=== PATIENT | female | born 1985 | race Caucasian/White ===

== ENCOUNTER 2016-12-04 17:33 | Outpatient (CLI) | payer OTHER ==
[~2016-12-04] VITALS: Ht 160 cm; Wt 107.3 kg
[~2016-12-04 17:33] MED LIST: CIPR500T4 PO; NAPR-260 PO; NITR-58 PO; [UNRECOGNIZED DRUG - CODE] PO
[2016-12-04] MEDS ORDERED: FER325 PO (17:48)
[2016-12-04] MEDS ORDERED: PRENAT PO (17:48)
[2016-12-04 17:49] VITALS: BP 144/78; PULSE 101; RESP 18; Ht 160 cm; Wt 107.3 kg
[2016-12-04 18:29] LABS: BASOPHILS % 0.2 % (0.0-2.0); EOSINOPHILS # 0.2 10^3/ul (0.0-0.5); EOSINOPHILS % 1.8 % (0.0-7.0); HEMATOCRIT 35.4 % (37.0-47.0); HEMOGLOBIN 11.9 g/dl (12.0-16.0); LYMPHOCYTES # 2.8 10^3/ul (0.8-2.9); MEAN CORPUSCULAR HGB CONC 33.7 g/dl (32.0-37.0); MEAN CORPUSCULAR VOLUME 86.2 fl (82.0-101.0); MEAN PLATELET VOLUME 10.6 fl (7.4-10.4); MONOCYTE # 0.9 10^3/ul (0.3-0.9); MONOCYTES % 8.9 % (0.0-11.0); NEUTROPHIL # 6.5 10^3/ul (1.6-7.5); NEUTROPHILS % 62.1 % (39.0-77.0); PLATELET COUNT 235 10^3/UL (140-440); RED BLOOD COUNT 4.11 10^6/ul (4.20-5.40); UNCORRECTED WBC 10.4 10^3/ul (4.8-10.8); WHITE BLOOD COUNT 10.4 10^3/ul (4.8-10.8)
[2016-12-04 18:41] LABS: CONDITION 1; LH ANALYZER COMMENTS 1
[2016-12-04 18:46] LABS: ALBUMIN 3.5 g/dl (3.3-4.9)
[2016-12-04 18:47] LABS: POTASSIUM 3.7 mmol/L (3.5-5.1)
[2016-12-04 18:49] LABS: BILIRUBIN,INDIRECT 0.2 mg/dl (0-1.1); BILIRUBIN,TOTAL 0.2 mg/dl (0.2-1.3); CREATININE 0.56 mg/dl (0.44-1.00)
--- NOTE | 2016-12-04 18:49 | RADRPT ---
PROCEDURE: Limited obstetric ultrasound CLINICAL INDICATION: Pain , labor TECHNIQUE: Multiple transverse and longitudinal grayscale images of the pelvis were obtained mao sabdominally and transvaginally.. COMPARISON: 08/17/2016 FINDINGS: The cervix is closed with a length of 4.4 cm. There is a single viable intrauterine gestation. Cardiac activity is present with 144 beats per min [place]. There is a breech presentation. The placenta is anterior. There is no evidence for an abruption or placenta previa. RPTAT: AA IMPRESSION: Cervix length measures 4.4 cm. .Maxx Ugalde MD, MD Date Time Electronically viewed and signed by .Maxx Ugalde MD, on 12/04/2016 18:48 .S/
[2016-12-04 18:50] LABS: ALBUMIN/GLOBULIN RATIO 1.06; TOTAL PROTEIN 6.8 g/dl (6.1-8.1)
[2016-12-04 18:50] LABS: ADD UMIC NO; URINE BILIRUBIN (Dip) NEGATIVE (NEGATIVE); URINE BLOOD (Dip) NEGATIVE (NEGATIVE); URINE COLOR LT. YELLOW (YELLOW); URINE GLUCOSE (Dip) NEGATIVE (NEGATIVE); URINE KETONES (Dip) NEGATIVE (NEGATIVE); URINE LEUKOCYTE ESTERASE (Dip) NEGATIVE (NEGATIVE); URINE NITRITE (Dip) NEGATIVE (NEGATIVE); URINE TOTAL PROTEIN (Dip) NEGATIVE (NEGATIVE); URINE UROBILINOGEN (Dip) 0.2 E.U./dL (0.1-1.0)
[2016-12-04 18:51] LABS: CALCIUM 9.4 mg/dl (8.4-10.2)
--- NOTE | 2016-12-04 19:01 | TRIAGE ---
OB Triage Datetime Report Generated by CPN: 12/04/2016 19:00 Datetime: 12/04/2016 18:30 Stage of : OB Triage Maternal Assessment Level of Consciousness: Fully Conscious Labor Evaluation Frequency: NONE Monitor Mode: External Resting Tone [place]: Relaxed Heart Rate Monitor Mode: Doppler (Annotations: FHT'S DOPPLED IN THE 150'S) Pain Assessment Pain Scale: 3 Pain Presence: Constant Pain Type: Cramping Pain Location: Abdomen Pain Goal: 3 Vaginal Exam Membrane Status: Intact Vaginal Bleeding: None Datetime: 12/04/2016 17:44 Assessment Type: Triage Maternal Assessment Level of Consciousness: Fully Conscious DTR's/Clonus: DTRs 2+; No Clonus Headache: Denies Blurred Vision: No Respiratory Effort: Unlabored; Regular Rhythm; Equal Expansion Breath Sounds, Left: Clear and Equal Breath Sounds, Right: Clear and Equal Nausea/Vomiting: Denies RUQ Epigastric Pain: Denies Lower Extremities Edema: None Degree: None Upper Extremities Edema: None Degree: None Facial Edema: None Fall Risk Assessment History of Falling: (0) No Secondary Diagnosis: (0) No Ambulatory Aid: (0) Bedrest/Nurse Assist IV Therapy: (0) No Gait: (0) Normal/Bedrest/Immobile Mental Status: (0) Oriented to Own Ability Fall Score: 0 Fall Risk Score Definition: No Risk: No action required Datetime: 12/04/2016 17:43 Time of Arrival: 12/04/2016 17:30 EGA: 21.4 Arrived By: Ambulatory Arrived From: Home Chief Complaint: PT HERE C/O SPOTTING X 1 OCCURENCE Movement: Present Contractions: Denies/Absent Rupture of Membranes: Denies Vaginal Bleeding: None Vaginal Discharge: Denies Recent Sexual Intercouse: Denies Abdominal Trauma: Not Applicable Patient Complaints: Cramping; Back Pain Time Provider Notified: 12/04/2016 17:55 Provider Notified: ADEN Initial Plan: EFM, UA C/S, CVL, CMP, CBC Datetime: 12/04/2016 17:36 Heart Rate Monitor Mode: Doppler Comments: FHT'S OBTAINED IN THE 150'S
--- NOTE | 2016-12-05 13:36 | PN ---
Date/Time of Note Date/Time of Note DATE: 12/05/16 TIME: 13:25 OB Subjective Subjective Subjective vaginal spotting on urination on wiping no more vaginal spotting on arrival at triage also occasional cramping pain at 21w4d with EDC 04/12/17 OB Objective Objective Objective no evidence of vaginal bleeding BP 144/78 KNOWN TO HAVE CHRONIC HTN repeat BP 138/65 EFM no uterine activities U/A NEG C&S sent CMP CBC NORMAL CERVICAL length 4.4cm CVA NO TENDERNESS OB Assessment/Plan Other Assessment: IUP 21W4D VAGINAL SPOTTING R/O PTL R/O UTI Other plan: D/S home with routine labor instructions increase fluid intake f/u at office for care Copies To: CC: MARJAN SAMANIEGO MD, MEE SOOK MD Dec 05, 2016 13:36
== END 2016-12-04 19:09 | disposition home or self-care (01) ==
LOC: OBT 17:33 → L-D 17:34 → OBT 19:09
PROVIDERS: ATTEND Obstetrics & Gynecology
DX: O26.852 Spotting complicating pregnancy, second trimester (principal); R10.9 Unspecified abdominal pain; Z3A.21 21 weeks gestation of pregnancy
CPT/HCPCS: 76817; 80053; 81003; 85025; 87086

== ENCOUNTER 2017-01-11 16:31 | Outpatient (CLI) | payer OTHER ==
[~2017-01-11] VITALS: Ht 160 cm; Wt 108.0 kg
[~2017-01-11 16:31] MED LIST changes: -CIPR500T4 PO; +FER325 PO; -NAPR-260 PO; -NITR-58 PO; +PRENAT PO; -[UNRECOGNIZED DRUG - CODE] PO
[2017-01-11 16:41] VITALS: BP 141/73; PULSE 105; Ht 160 cm; Wt 108.0 kg
[2017-01-11 17:59] LABS: ADD SCAN DIFF NO
[2017-01-11 18:06] LABS: BASOPHILS % 0.2 % (0.0-2.0); EOSINOPHILS # 0.2 10^3/ul (0.0-0.5); EOSINOPHILS % 2.1 % (0.0-7.0); HEMATOCRIT 33.4 % (37.0-47.0); LYMPHOCYTES # 2.6 10^3/ul (0.8-2.9); LYMPHOCYTES % 24.3 % (15.0-51.0); MEAN CORPUSCULAR HEMOGLOBIN 29.1 pg (29.0-33.0); MEAN CORPUSCULAR HGB CONC 32.9 g/dl (32.0-37.0); MEAN CORPUSCULAR VOLUME 88.4 fl (82.0-101.0); MONOCYTE # 0.8 10^3/ul (0.3-0.9); MONOCYTES % 6.9 % (0.0-11.0); NEUTROPHIL # 7.2 10^3/ul (1.6-7.5); NEUTROPHILS % 65.9 % (39.0-77.0); PLATELET COUNT 227 10^3/UL (140-415); RED BLOOD COUNT 3.78 10^6/ul (4.20-5.40); WHITE BLOOD COUNT 10.9 10^3/ul (4.8-10.8)
[2017-01-11 18:10] LABS: ALBUMIN 3.1 g/dl (3.3-4.9)
[2017-01-11 18:13] LABS: ALBUMIN/GLOBULIN RATIO 1.1; BILIRUBIN,INDIRECT 0.1 mg/dl (0-1.1); BILIRUBIN,TOTAL 0.1 mg/dl (0.2-1.3); CREATININE 0.41 mg/dl (0.44-1.00); TOTAL PROTEIN 5.9 g/dl (6.1-8.1)
[2017-01-11 18:14] LABS: CALCIUM 8.6 mg/dl (8.4-10.2)
[2017-01-11 18:17] LABS: POTASSIUM 2.9 mmol/L (3.5-5.1)
[2017-01-11] MEDS ORDERED: POTASSIUM CHLORIDE (SR) 20 MEQ TAB PO STA (18:28)
[2017-01-11 18:46] LABS: ADD UMIC NO; URINE BILIRUBIN (Dip) NEGATIVE (NEGATIVE); URINE BLOOD (Dip) NEGATIVE (NEGATIVE); URINE COLOR LT. YELLOW (YELLOW); URINE GLUCOSE (Dip) NEGATIVE (NEGATIVE); URINE KETONES (Dip) NEGATIVE (NEGATIVE); URINE LEUKOCYTE ESTERASE (Dip) NEGATIVE (NEGATIVE); URINE NITRITE (Dip) NEGATIVE (NEGATIVE); URINE TOTAL PROTEIN (Dip) NEGATIVE (NEGATIVE); URINE UROBILINOGEN (Dip) 0.2 E.U./dL (0.1-1.0)
--- NOTE | 2017-01-11 19:06 | HP ---
Date/Time of Note Date/Time of Note DATE: 01/11/17 TIME: 18:59 OB - History Hx of Present Free Text/Dictation OB Triage Pt is a 31yo @27+0 with gHTN and prior PIH presents for an episode of flushing and nausea and vomiting after eating a cheeseburger. She then took her BP and said it was 153/111. Pt denies headache, visual changes or RUQ pain. At home pt reports her BPs have been 130s-140s/70s Pt denies taking antihypertensives Estimated Due Date: Apr 12, 2017 : 4 Para: 3 Care: Good Care Obstetrical Complications: Gestational Hypertension OB Admission Exam Vital Signs Vital Signs Vital Signs Date Time Temp Pulse Resp B/P Pulse Ox O2 Delivery O2 Flow Rate FiO2 01/11/17 16:41 97.6 105 141/73 BPs 140s/60-70s Physical Exam Heart Rate: 130's Accelerations: Accelerations Present Decelerations: No Decelerations Varibility: Moderate Contractions on Admission: None Last 72 hours Lab Results CBC & BMP 01/11/17 17:30 Liver Function Test 01/11/17 17:30 Alanine Aminotransferase (ALT/SGPT) 27 Albumin 3.1 L Alkaline Phosphatase 75 Aspartate Amino Transf (AST/SGOT) 17 Direct Bilirubin 0.00 Total Protein 5.9 L OB Assessment/Plan Other Assessment: gHTN without e/o PreE Reactive NST Other plan: Pt with normal PreE labs Hypokalemia managed with PO potassium per Dr. Alfaro Pt appropriate for d/c home with close follow-up Pt will f/up on 01/14/[address] Alfaro Strict PreE precautions, PTL and PPROM precautions reviewed Questions answered to patient's satisfaction KAILYN BURGER MD Jan 11, 2017 19:06
--- NOTE | 2017-01-11 19:10 | TRIAGE ---
OB Triage Datetime Report Generated by CPN: 01/11/2017 19:10 Datetime: 01/11/2017 17:50 Stage of : OB Triage Datetime: 01/11/2017 17:29 FHR Baseline Changes: No Baseline Change Comments: EFM DC .PT WAITING FOR LAB RESULTS TO BE DCD Datetime: 01/11/2017 17:27 Labor Evaluation Frequency: NONE Monitor Mode: External Pattern: Normal: <= 5 Contractions in 10 Minutes Resting Tone [place]: Relaxed Heart Rate FHR Baseline Rate: 135 Monitor Mode: External US FHR Baseline Changes: No Baseline Change Variability: Moderate 6-25 bpm Accelerations: 15X15 Decelerations: None Category: Category I Datetime: 01/11/2017 17:10 Labor Evaluation Frequency: NONE Monitor Mode: External Pattern: Normal: <= 5 Contractions in 10 Minutes Resting Tone [place]: Relaxed Heart Rate FHR Baseline Rate: 135 Monitor Mode: External US FHR Baseline Changes: No Baseline Change Variability: Moderate 6-25 bpm Accelerations: 15X15 Decelerations: None Category: Category I Datetime: 01/11/2017 17:00 Labor Evaluation Frequency: NONE Monitor Mode: External Pattern: Normal: <= 5 Contractions in 10 Minutes Resting Tone [place]: Relaxed Heart Rate FHR Baseline Rate: 135 Monitor Mode: External US FHR Baseline Changes: No Baseline Change Variability: Moderate 6-25 bpm Accelerations: 15X15 Decelerations: Variable Category: Category I Datetime: 01/11/2017 16:39 Assessment Type: Triage Maternal Assessment Level of Consciousness: Fully Conscious DTR's/Clonus: DTRs 2+; No Clonus Headache: Denies Blurred Vision: No Respiratory Effort: Unlabored; Regular Rhythm; Equal Expansion Breath Sounds, Left: Clear and Equal Breath Sounds, Right: Clear and Equal Nausea/Vomiting: Denies RUQ Epigastric Pain: Denies Lower Extremities Edema: None Degree: None Upper Extremities Edema: None Degree: None Facial Edema: None Fall Risk Assessment History of Falling: (0) No Secondary Diagnosis: (0) No Ambulatory Aid: (0) Bedrest/Nurse Assist IV Therapy: (0) No Gait: (0) Normal/Bedrest/Immobile Mental Status: (0) Oriented to Own Ability Fall Score: 0 Fall Risk Score Definition: No Risk: No action required Datetime: 01/11/2017 16:36 Time of Arrival: 01/11/2017 16:36 EGA: 27.0 Arrived By: Ambulatory Arrived From: Home Chief Complaint: OB VISIT Movement: Present Contractions: Denies/Absent Rupture of Membranes: Denies Vaginal Bleeding: None Vaginal Discharge: Denies Recent Sexual Intercouse: Denies Abdominal Trauma: Not Applicable Patient Complaints: None Additional Patient Complaints: H/O GEST HTN Initial Plan: EFM Datetime: 12/04/2016 17:44 Fall Score: 0 Fall Risk Score Definition: No Risk: No action required Datetime: 12/04/2016 17:43 EGA: 21.4
== END 2017-01-11 19:05 | disposition home or self-care (01) ==
LOC: L-D 16:31 → OBT 16:31
PROVIDERS: ATTEND Obstetrics & Gynecology
DX: O13.2 Gestational [pregnancy-induced] hypertension without significant proteinuria, second trimester (principal); Z3A.27 27 weeks gestation of pregnancy
CPT/HCPCS: 36415; 80053; 81003; 85025; 85730; Z7500; Z7610; G0463

== ENCOUNTER 2017-03-18 15:11 | Inpatient (IN) | payer OTHER ==
[~2017-03-18] VITALS: Ht 157.5 cm; Wt 108.3 kg
[2017-03-18 15:52] VITALS: Ht 157.5 cm; Wt 108.3 kg
[2017-03-18 15:53] VITALS: BP 141/78; PULSE 104; RESP 18
[2017-03-18 16:07] LABS: ADD SCAN DIFF NO
[2017-03-18 16:10] LABS: ADD UMIC NO; URINE BILIRUBIN (Dip) NEGATIVE (NEGATIVE); URINE BLOOD (Dip) NEGATIVE (NEGATIVE); URINE COLOR LT. YELLOW (YELLOW); URINE GLUCOSE (Dip) NEGATIVE (NEGATIVE); URINE KETONES (Dip) TRACE (NEGATIVE); URINE LEUKOCYTE ESTERASE (Dip) NEGATIVE (NEGATIVE); URINE NITRITE (Dip) NEGATIVE (NEGATIVE); URINE TOTAL PROTEIN (Dip) NEGATIVE (NEGATIVE); URINE UROBILINOGEN (Dip) 0.2 E.U./dL (0.1-1.0)
[2017-03-18 16:10] LABS: BASOPHILS % 0.1 % (0.0-2.0); EOSINOPHILS # 0.1 10^3/ul (0.0-0.5); EOSINOPHILS % 1.3 % (0.0-7.0); HEMATOCRIT 33.6 % (37.0-47.0); HEMOGLOBIN 10.9 g/dl (12.0-16.0); LYMPHOCYTES # 2.2 10^3/ul (0.8-2.9); MEAN CORPUSCULAR HEMOGLOBIN 28.4 pg (29.0-33.0); MEAN CORPUSCULAR HGB CONC 32.4 g/dl (32.0-37.0); MEAN CORPUSCULAR VOLUME 87.5 fl (82.0-101.0); MEAN PLATELET VOLUME 11.9 fl (7.4-10.4); MONOCYTE # 0.6 10^3/ul (0.3-0.9); MONOCYTES % 7.8 % (0.0-11.0); NEUTROPHILS % 62.5 % (39.0-77.0); PLATELET COUNT 204 10^3/UL (140-415); RED BLOOD COUNT 3.84 10^6/ul (4.20-5.40); RED CELL DISTRIBUTION WIDTH 15.2 % (11.5-14.5)
[2017-03-18 16:26] LABS: INR 0.99; PROTIME 13.1 Sec (12.2-14.2)
--- NOTE | 2017-03-18 16:26 | RADRPT ---
PROCEDURE: US OB biophysical profile. CLINICAL INDICATION: decreased movements, hypertension TECHNIQUE: Multiple sonographic images of the pelvis were obtained. The images were reviewed on a PACS workstation. COMPARISON: No prior studies are available for comparison. FINDINGS: There is a single viable intrauterine gestation. Cardiac activity is present with 150 beats per min [place]. There is a vertex presentation. The placenta is anterior. There is no evidence of placental abruption. There is a decreased amount of amniotic fluid with an RADHA = 4.8 cm. Biophysical profile: movement 2/2 tone 2/2. breathing 2/2 RADHA 0/2 Total 04/18 RPTAT: AA . IMPRESSION: Decreased biophysical profile. Oligohydramnios. . .Maxx Ugalde MD, Date Time Electronically viewed and signed by .Maxx Ugalde MD, MD on 03/18/2017 16:26 .S/
[2017-03-18 16:29] LABS: POTASSIUM 3.4 mmol/L (3.5-5.1)
[2017-03-18 16:31] LABS: ALBUMIN/GLOBULIN RATIO 0.93; BILIRUBIN,INDIRECT 0.2 mg/dl (0-1.1); BILIRUBIN,TOTAL 0.2 mg/dl (0.2-1.3); CREATININE 0.56 mg/dl (0.44-1.00); TOTAL PROTEIN 6.2 g/dl (6.1-8.1)
[2017-03-18 16:32] LABS: CALCIUM 8.7 mg/dl (8.4-10.2)
[2017-03-18 16:56] LABS: FIBRIN SPLIT PRODUCT <10 ug/ml (<10)
[2017-03-18] MEDS: LACTATED RINGER'S 1,000 ML IV SCH (19:23)
--- NOTE | 2017-03-19 01:33 | HP ---
Date/Time of Note Date/Time of Note DATE: 03/19/17 TIME: 01:25 OB - History Hx of Present Free Text/Dictation 31 y.o [id number] 2Xcesarean sections sent for high blood pressure at 36w3d at triage 141/78 130/73 PIH panel nl BPP 8/8 with RADHA 4.8 kept overnight with iv hydration and repeat RADHA in am Chief Complaint: oligohyramniosi Estimated Due Date: Apr 12, 2017 : 4 Para: 2 Spontaneous : 0 Care: Good Care Ultrasounds: Normal mid trimester US Obstetrical Complications: None Medical Complications: None Past Family/Social History * Past Medical, Surgical, Family and Obstetric Histories reviewed from chart. Blood Type: Unknown Rubella: unknown RPR/VDRL: Unknown GBS Status: Unknown HBsAG: Unknown OB Admission Exam Vital Signs Vital Signs Vital Signs Date Time Temp Pulse Resp B/P Pulse Ox O2 Delivery O2 Flow Rate FiO2 03/18/17 15:53 98.6 104 18 141/78 Room Air Physical Exam HEENT: WNL Heart: Rhythm Normal Lungs: Clear, Equal Abdomen: WNL Extremities: Normal Reflexes: Normal Cervical Dilatation: other Station: Other Amniotic Fluid: Other Heart Rate: 140's Accelerations: Accelerations Present Decelerations: No Decelerations Varibility: Moderate Contractions on Admission: >10 Minutes Apart Intensity: Mild Last 72 hours Lab Results CBC & BMP 03/18/17 15:45 Liver Function Test 03/18/17 15:45 Alanine Aminotransferase (ALT/SGPT) 29 Albumin 3.0 L Alkaline Phosphatase 118 Aspartate Amino Transf (AST/SGOT) 17 Direct Bilirubin 0.00 Total Protein 6.2 OB Assessment/Plan Reason for admission: other (oligohydramnios) Other plan: repeat RADHA in am after hydration MARJAN SAMANIEGO MD March 19, 2017 01:33
[2017-03-19] MEDS: LACTATED RINGER'S 1,000 ML IV SCH ×4 (02:00→18:41)
--- NOTE | 2017-03-19 08:36 | RADRPT ---
PROCEDURE: OB ultrasound (limited) CLINICAL INDICATION: Low RADHA, follow-up TECHNIQUE: Limited transabdominal sonographic evaluation of the gravid uterus was performed. COMPARISON: Ultrasound, 03/18/2017 FINDINGS: Single intrauterine gestation is identified in cephalic position. Placenta is anterior without evid ence of abruption or previa. heart rate is 148 bpm. RADHA measures 9.3 cm, within normal limit s. IMPRESSION: 1. Single live intrauterine gestation, as above. 2. RADHA measures 9.3 cm, within normal limits. Previously, RADHA measured 4.8 cm. RPTAT: EE .Stanton Yung MD, MD Date Time Electronically viewed and signed by .Stanton Yung MD, on 03/19/2017 08:35 .R/
[2017-03-19] MEDS ORDERED: MULTIVIT/MIN/FOLATE/IRON/PREN TAB PO SCH (09:00)
[2017-03-19] MEDS ORDERED: FERROUS SULFATE (EC) 325 MG TAB PO SCH (09:00)
[2017-03-19] MEDS: ACETAMINOPHEN 325 MG TAB PO PRN (13:01)
--- NOTE | 2017-03-19 17:43 | PD.PPDC ---
[employer] Discharge Instruction Diagnosis Final Diagnosis: IUP 36w PIH oligohydramnios resolved normotensive Condition Patient Condition: Stable Diet Diet: Resume Regular Diet Follow-up Follow-up with Physician: 1, Week/Weeks Return to clinic for OB Instructions: Blurried Vision Headache MARJAN SAMANIEGO MD March 19, 2017 17:43
--- NOTE | 2017-03-19 22:58 | PN ---
Date/Time of Note Date/Time of Note DATE: 03/19/17 TIME: 22:55 OB Subjective Subjective Subjective c/o headahe OB Objective Objective Objective b.p 150/80 RADHA 9.3 from4,8 OB Assessment/Plan Other Assessment: [id number] with PIH Other plan: observe tonite with 24hr urine protein collection hold discharge MARJAN SAMANIEGO MD March 19, 2017 22:58
[2017-03-19] MEDS ORDERED: LACTATED RINGER'S 1,000 ML IV SCH (23:46)
[2017-03-20] VITALS (17 sets, daily range): BP systolic 135–187; BP diastolic 71–99; PULSE 97–123; RESP 18–20
[2017-03-20] MEDS ORDERED: CA GLUCONATE (GM) 10% 10ML INJ IV PRN
[2017-03-20] MEDS ORDERED: MAGNESIUM SULFATE 4 GM/100 ML 100 ML IV SCH
[2017-03-20] MEDS ORDERED: MAGNESIUM SULFATE 20 GM/500 ML 500 ML IV SCH (00:30)
[2017-03-20] MEDS: ACETAMINOPHEN 325 MG TAB PO PRN (00:42)
[2017-03-20] MEDS ORDERED: LACTATED RINGER'S 1,000 ML IV SCH (03:05)
[2017-03-20] MEDS ORDERED: OXYTOCIN 30 UNITS/LR 500 ML IV PRN ×2 (03:30→10:30)
[2017-03-20] MEDS ORDERED: CARBOPROST 250 MCG INJ IM PRN ×2 (03:30→10:30)
[2017-03-20] MEDS ORDERED: CLINDAMYCIN 900 MG/D5W (PMX) 50 ML IV SCH (03:30)
[2017-03-20] MEDS ORDERED: MISOPROSTOL 200 MCG TAB PR PRN ×2 (03:30→10:30)
[2017-03-20] MEDS ORDERED: METHYLERGONOVINE 0.2 MG INJ IM PRN ×2 (03:30→10:30)
[2017-03-20] MEDS ORDERED: OXYTOCIN 30 UNITS/LR 500 ML IV SCH (03:30)
[2017-03-20] MEDS ORDERED: LACTATED RINGER'S 500 ML IV ONE (03:44)
[2017-03-20] MEDS ORDERED: METOCLOPRAMIDE 10 MG INJ IV ONE (04:00)
[2017-03-20] MEDS ORDERED: FAMOTIDINE 20 MG INJ IV ONE (04:00)
[2017-03-20] MEDS ORDERED: CITRIC ACID/NA CITRATE 30 ML CUP PO ONE (04:00)
[2017-03-20] MEDS ORDERED: OXYTOCIN 30 UNITS/LR 500 ML IV ONE ×2 (05:09→06:00)
[2017-03-20] MEDS ORDERED: FENTAnyl 50 MCG/ML VIAL ONE (05:09)
[2017-03-20] MEDS ORDERED: morphine SULFATE/PF (10 MG/10 ML) INJ ONE (05:09)
[2017-03-20] MEDS ORDERED: PHENYLephrine (100 MCG/ML) 5ML SYG ONE ×2 (05:24→05:30)
[2017-03-20] MEDS ORDERED: ONDANSETRON 4 MG INJ ONE (05:55)
[2017-03-20] MEDS ORDERED: NALOXONE (0.4 MG/ML) INJ IV PRN (06:00)
[2017-03-20] MEDS ORDERED: PROCHLORPERAZINE 10 MG INJ IV PRN ×2 (06:00)
[2017-03-20] MEDS ORDERED: MEPERIDINE 25 MG INJ IV PRN (06:00)
[2017-03-20] MEDS ORDERED: ONDANSETRON 4 MG INJ IV PRN ×3 (06:00→10:30)
[2017-03-20] MEDS ORDERED: DIPHENHYDRAMINE 50 MG INJ IV PRN ×3 (06:00→10:30)
[2017-03-20] MEDS ORDERED: ZOLPIDEM 5 MG TAB PO PRN ×2 (06:00→10:30)
[2017-03-20] MEDS ORDERED: FENTAnyl 50 MCG/ML VIAL IV PRN (06:00)
[2017-03-20] MEDS ORDERED: HYDROmorphONE 1 MG/ML SYG IV PRN (06:00)
[2017-03-20] MEDS: HYDROmorphONE (0.2 MG/ML) 10ML SYG IV PRN ×2 (08:00→09:11)
[2017-03-20] MEDS ORDERED: OXYCODONE/ACETAMINOPHEN (5/325) TAB PO PRN (10:30)
[2017-03-20] MEDS ORDERED: LANOLIN 7 GM TUBE TOP PRN (10:30)
[2017-03-20] MEDS: IBUPROFEN 600 MG TAB PO SCH ×2 (10:38→17:18)
[2017-03-20] MEDS: LACTATED RINGER'S 1,000 ML IV SCH ×2 (11:00→23:17)
[2017-03-20] MEDS: MAGNESIUM SULFATE 20 GM/500 ML 500 ML IV SCH ×2 (11:00→20:58)
--- NOTE | 2017-03-20 13:05 | OPR ---
DATE OF OPERATION: 03/20/2017 PREOPERATIVE DIAGNOSIS: 1. 36 weeks 5 days, -induced hypertension 2. Multiparity for tubal sterilization. POSTOPERATIVE DIAGNOSIS: Delivered male , weight 5 pounds 3 ounces. OPERATION PERFORMED: Repeat low transverse section and bilateral partial salpingectomy. ANESTHESIOLOGIST: Dr. Ava Gongora. SURGEON: Héctor Alfaro MD HAM SAWYER: PROCEDURE: Under appropriate induction of spinal anesthesia, the patient was placed in the frog pos ition. Katz catheter was introduced into bladder under sterile condition and repositioned to supin e. Abdominal wall was prepped and draped in usual aseptic manner. A transverse incision was made along the previous incisional scar. Scar tissue was excised. Incisi on was carried down through the subcutaneous tissue to the anterior recti fascia which was incised t ransversely in length of the incision. Fascial flap was created by blunt and sharp dissection of te ndinous attachment with some difficulty due to the fibrotic change from the previous surgery. Perit cortes cavity was entered, and the low portion of the uterus was exposed. Weighted speculum was intr oduced and the incision was made above the uterovesical reflection layer by layer, reached the amnio tic membrane, revealed clear amniotic fluid, and this incision was extended bilaterally and a normal male was born from the left occiput transverse position. Mouth and nose were cleane d. Cord was clamped and cut, and the baby was handed to the respiratory care personnel for further care. Cord blood was obtained. Placenta was removed manually. Cavity was completely explored. The uterus was exteriorized. Uterin e cavity was rechecked for remnants of any membrane which was clear and the incision was close d with #1 chromic catgut in continuous manner and second layer was using 0 chromic catgut in continu ous manner. No bleeder was noted. The right fallopian tube was grasped with a [place] forceps and the fimbrial end was grasped with th e David forceps and this fimbria was removed by ligating doubly with 0 plain. Bleeding was contro lled. The same procedure was done on the contralateral tube . Fimbria was grasped with . This was doubly ligated with 0 plain and the fimbria was sent to the pathologist. Bleeder controlled pro perly. After rechecked the incisional site, uterus was relocated into the abdominal cavity after the blood was removed from both gutters and sponge count taken which was correct. Parietal peritoneum was jaya sed using 0 chromic catgut in continuous manner after the sponge count was correct. The muscle clos ed with 0 chromic catgut in continuous manner. The fascia closed with #1 Vicryl in continuous ashish r in 2 segments. Subcutaneous tissue irrigated. This layer was approximated with a 2-0 plain in co ntinuous manner after adequate hemostasis was secured. Skin closed with 3-0 Monocryl in subcuticula r manner. Steri-Strips were applied. Pressure dressing applied. Estimated blood loss approximately 600 mL. The patient withstood procedure and was sent to recovery room in stable condition. Dictated By: HÉCTOR NEVAREZ/ZAC Conf#: [id number] DID#: [id number]
[2017-03-20] MEDS ORDERED: hydrALAzine 20 MG INJ IV ONE ×2 (20:30→21:30)
--- NOTE | 2017-03-20 20:41 | QN ---
Documentation Comment Laborist Called by PM RN 2/2 elevated BPs in 31yo P3 w/cHTN diagnosed during and managed without meds. Pt now POD#0 s/p Repeat C/S at 36+ wks in the setting of concern for PreE. BPs @2040 187/91 (at time of MD evaluation) @1850 184/99 @1833 178/94 @1820 184/99 @1800 165/89 @1700 146/90 BPs earlier in the day 130s-140s/70s Pt denies PAZ, visual change or RUQ pain. C/o itching with anesthesia from C/S. Feels she may have had a reaction to Benadryl with flushing. Received 2nd dose prior to change of shift. Gen: well appearing, NAD CV: RRR, nl s1s2 Resp: CTAB Abd: soft, obese, appropriately TTP Inc: c/d/i with bandage Nita: Abarca in place with clear urine A/P: Persistently severe range BPs in the setting of cHTN Pt currently asymptomatic from PreE standpoint -IV Hydralazine 10mg x1 stat -PreE labs -Urine from abarca for U/A to r/o protein -Continue monitoring BPs and sxs Plan d/w pt as well as Dr. Alfaro. Questions answered to patient's satisfaction. KAILYN BURGER MD March 20, 2017 20:41
[2017-03-20 20:44] LABS: ADD SCAN DIFF NO
[2017-03-20 20:46] LABS: BASOPHILS % 0.2 % (0.0-2.0); EOSINOPHILS % 0.2 % (0.0-7.0); HEMATOCRIT 35.5 % (37.0-47.0); HEMOGLOBIN 11.7 g/dl (12.0-16.0); LYMPHOCYTES # 1.1 10^3/ul (0.8-2.9); LYMPHOCYTES % 9.4 % (15.0-51.0); MEAN CORPUSCULAR HEMOGLOBIN 28.4 pg (29.0-33.0); MEAN CORPUSCULAR VOLUME 86.2 fl (82.0-101.0); MEAN PLATELET VOLUME 11.4 fl (7.4-10.4); MONOCYTE # 0.8 10^3/ul (0.3-0.9); MONOCYTES % 6.4 % (0.0-11.0); NEUTROPHIL # 10.1 10^3/ul (1.6-7.5); NEUTROPHILS % 83.5 % (39.0-77.0); PLATELET COUNT 214 10^3/UL (140-415); RED BLOOD COUNT 4.12 10^6/ul (4.20-5.40); WHITE BLOOD COUNT 12.1 10^3/ul (4.8-10.8)
[2017-03-20 20:48] LABS: ADD UMIC YES; URINE BILIRUBIN (Dip) NEGATIVE (NEGATIVE); URINE BLOOD (Dip) 3+ (NEGATIVE); URINE COLOR LT. YELLOW (YELLOW); URINE GLUCOSE (Dip) NEGATIVE (NEGATIVE); URINE KETONES (Dip) 15 (NEGATIVE); URINE LEUKOCYTE ESTERASE (Dip) TRACE (NEGATIVE); URINE NITRITE (Dip) NEGATIVE (NEGATIVE); URINE TOTAL PROTEIN (Dip) NEGATIVE (NEGATIVE); URINE UROBILINOGEN (Dip) 0.2 E.U./dL (0.1-1.0)
[2017-03-20 20:59] LABS: SQUAMOUS EPITHELIAL CELL,UR RARE
[2017-03-20] MEDS: SENNA/DOCUSATE NA (8.6MG/50MG) TAB PO SCH (21:00)
[2017-03-20 21:03] LABS: ALBUMIN 3.1 g/dl (3.3-4.9)
[2017-03-20 21:04] LABS: POTASSIUM 3.4 mmol/L (3.5-5.1)
[2017-03-20 21:06] LABS: ALBUMIN/GLOBULIN RATIO 0.93; BILIRUBIN,INDIRECT 0.6 mg/dl (0-1.1); BILIRUBIN,TOTAL 0.6 mg/dl (0.2-1.3); CREATININE 0.4 mg/dl (0.44-1.00); TOTAL PROTEIN 6.4 g/dl (6.1-8.1)
[2017-03-20 21:07] LABS: CALCIUM 7.9 mg/dl (8.4-10.2)
[2017-03-20] MEDS: HYDROmorphONE 1 MG/ML SYG IV PRN (22:13)
[2017-03-21] VITALS (11 sets, daily range): BP systolic 123–154; BP diastolic 43–84; PULSE 95–114; RESP 19–20
[2017-03-21] MEDS: HYDROmorphONE 1 MG/ML SYG IV PRN (02:50)
[2017-03-21] MEDS: IBUPROFEN 600 MG TAB PO SCH ×5 (06:00→17:11)
[2017-03-21 08:17] LABS: ADD SCAN DIFF NO
[2017-03-21 08:26] LABS: BASOPHILS % 0.1 % (0.0-2.0); EOSINOPHILS # 0.1 10^3/ul (0.0-0.5); EOSINOPHILS % 1.1 % (0.0-7.0); HEMATOCRIT 34.5 % (37.0-47.0); HEMOGLOBIN 11.3 g/dl (12.0-16.0); LYMPHOCYTES # 1.6 10^3/ul (0.8-2.9); LYMPHOCYTES % 15.4 % (15.0-51.0); MEAN CORPUSCULAR HEMOGLOBIN 28.5 pg (29.0-33.0); MEAN CORPUSCULAR HGB CONC 32.8 g/dl (32.0-37.0); MEAN CORPUSCULAR VOLUME 87.1 fl (82.0-101.0); MEAN PLATELET VOLUME 11.7 fl (7.4-10.4); MONOCYTE # 0.8 10^3/ul (0.3-0.9); NEUTROPHIL # 7.8 10^3/ul (1.6-7.5); NEUTROPHILS % 74.9 % (39.0-77.0); PLATELET COUNT 227 10^3/UL (140-415); RED BLOOD COUNT 3.96 10^6/ul (4.20-5.40); RED CELL DISTRIBUTION WIDTH 15.3 % (11.5-14.5); WHITE BLOOD COUNT 10.4 10^3/ul (4.8-10.8)
[2017-03-21] MEDS: SENNA/DOCUSATE NA (8.6MG/50MG) TAB PO SCH ×2 (08:54→21:00)
--- NOTE | 2017-03-21 14:53 | PN ---
Date/Time of Note Date/Time of Note DATE: 03/21/17 TIME: 14:48 OB Subjective Subjective Subjective no c/o no headche or an y other subjective symptoms OB Objective Objective Objective normotensive abdomen soft wound dry lochia min ext neg for tenderness OB Assessment/Plan Other Assessment: stisfactory Other plan: d/s home in am MARJAN SAMANIEGO MD March 21, 2017 14:53
[2017-03-22] MEDS: IBUPROFEN 600 MG TAB PO SCH ×4 (00:29→17:58)
[2017-03-22] MEDS: OXYCODONE/ACETAMINOPHEN (5/325) TAB PO PRN ×3 (01:01→16:53)
[2017-03-22 04:00] VITALS: BP 116/64; PULSE 89; RESP 16; RESP 19
[2017-03-22 08:00] VITALS: BP 125/75; PULSE 93; RESP 18
[2017-03-22] MEDS: SENNA/DOCUSATE NA (8.6MG/50MG) TAB PO SCH ×2 (09:37→22:18)
--- NOTE | 2017-03-22 09:57 | PN ---
Date/Time of Note Date/Time of Note DATE: 03/22/17 TIME: 09:39 OB Subjective Subjective Subjective had bowel movement no c/o OB Objective Objective Objective vss afebrile abdomen soft wound dry lochia min ext neg for tenderness OB Assessment/Plan Other Assessment: s/p rc/s and btl satisfactory Other plan: d/s home in am MARJAN SAMANIEGO MD March 22, 2017 09:56
[2017-03-22 12:00] VITALS: BP 101/56; PULSE 63
[2017-03-22 16:00] VITALS: BP 132/88; PULSE 90
[2017-03-22 20:00] VITALS: BP 138/70; PULSE 93; RESP 20
[2017-03-23] MEDS: IBUPROFEN 600 MG TAB PO SCH ×3 (00:02→12:36)
[2017-03-23 04:00] VITALS: BP 129/82; PULSE 101; RESP 16
[2017-03-23 08:50] VITALS: BP 142/80; PULSE 91; RESP 17
[2017-03-23] MEDS ORDERED: DIPHTH/TET/ACEL PERTUSS (ADULT) 0.5 ML VIAL IM* ONE (09:00)
[2017-03-23] MEDS: SENNA/DOCUSATE NA (8.6MG/50MG) TAB PO SCH (09:09)
--- NOTE | 2017-03-23 13:15 | PD.PPDC ---
[employer] Discharge Instruction Diagnosis Final Diagnosis: s/p rc/s BTL pih Condition Patient Condition: Stable Diet Diet: Resume Regular Diet Activity/Restrictions Activity: March Shower Restrictions: No Exercising No Lifting Minimize Stair-climbing No Sexual Activity Nothing in the Vagina No New Post No Tampons, douche Wound/Drain Care Instructions Wound/Drain Care Instructions: Wash with soap and water Keep clean and dry Follow-up Follow-up with Physician: 1, 2, Week/Weeks Return to clinic for A[employer] PERFORMER Instructions: Fever greater than 101 Chills Worsening abdominal pain Excessive Vaginal Bleeding More than 2 pads per hour Unable to tolerate diet OB Instructions: Breast Tenderness Depression Blurried Vision Headache Surgical Instructions: Incisional Drainage Incisional Redness MARJAN SAMANIEGO MD March 23, 2017 13:15
--- NOTE | 2017-03-23 13:22 | DS ---
Date/Time of Note Date/Time of Note DATE: 03/23/17 TIME: 13:18 Obstetrical Discharge Record Final Diagnosis Final Diagnosis: delivered Other Final Diagnosis IUP 36w6\d induced hypertension Vaginal Delivery Obstetrical Delivery: Bilateral Tubal Ligation Section Section: Repeat Complications Preg induced Hypertension Condition on Discharge Physical Assessment Last Vitals: vss afebrile Voiding: Yes Bowel Movement: Yes Breast: Soft, non-tender Fundus: Firm Abdomen and Incision: soft wound dry Calf Tenderness: No Patient Condition: Stable MARJAN SAMANIEGO MD March 23, 2017 13:22
== END 2017-03-23 17:21 | disposition home or self-care (01) | DRG 766 ==
LOC: OBT 15:11 → L-D 15:12 → OBG 17:20 → OBT 17:20 → L-D 03-20 02:55 → PP1 03-20 09:52
PROVIDERS: ADMIT Obstetrics & Gynecology; ATTEND Obstetrics & Gynecology
PROC: 0UL70ZZ Occlusion of Bilateral Fallopian Tubes, Open Approach (ICD-10-PCS; 2017-03-20)
PROC: 10D00Z1 Extraction of Products of Conception, Low, Open Approach (ICD-10-PCS; principal; 2017-03-20 05:45)
DX: O13.4 Gestational [pregnancy-induced] hypertension without significant proteinuria, complicating childbirth (principal); O60.14X0 Preterm labor third trimester with preterm delivery third trimester, not applicable or unspecified; Z30.2 Encounter for sterilization; Z3A.36 36 weeks gestation of pregnancy; Z37.0 Single live birth
CPT/HCPCS: 76816; 76818; 80053; 81001; 81003; 83735; 84560; 85025; 85362; 85384; 85610; 85730; 86592; 86850; 86900; 86901; 86920; 87340; 90715; 94760; 99464; G0463; J0360; J1170; J1200; J2274; J2370; J2405; J2590; J2765; J3010; J3475; J7120

== ENCOUNTER 2018-05-01 13:12 | Emergency (ER) | END 2018-05-01 16:36 | disposition home or self-care (01) ==